=== PATIENT | male | born 2000 | race Caucasian/White ===

== ENCOUNTER 2019-04-21 17:15 | Emergency (ER) | payer OTHER ==
[2019-04-21 17:39] LABS: ABS Lymphocytes 2.1 10^3/ul (1.0-4.8); ABS Monocytes 0.4 10^3/ul (0-0.8); ABS Neutrophils 2.4 10^3/ul (1.5-7.7); Eosinophil % 0.7 %; Hematocrit 43 % (42-52); Lymphocyte % 42.3 %; Mean Corpuscular HGB Conc 35 g/dL (31-36); Mean Corpuscular Hemoglobin 32 pg (27-31); Mean Corpuscular Volume 91 fL (80-94); Mean Platelet Volume 7.5 fL (7.4-10.4); Nucleated Red Blood Cells % 0.1; Platelet Count 247 10^3/uL (150-450); Red Blood Count 4.74 10^6 /uL (4.18-5.48); Red Cell Distribution Width 13 % (10-15)
[2019-04-21 17:57] LABS: Albumin 4.8 g/dL (3.2-5.2); Albumin/Globulin Ratio 1.8 (1-3); Calcium 9.7 mg/dL (8.6-10.3); EGFR African American 122.6 (>60); EGFR Non-African American 101.3 (>60); Globulin 2.7 g/dL (2-4); INR 1.1 (0.82-1.09); Potassium 3.3 mmol/L (3.5-5.0); Total Bilirubin 0.7 mg/dL (0.2-1.0); Total Protein 7.5 g/dL (6.4-8.9)
[2019-04-21] MEDS ORDERED: Potassium Chlor TAB* 20 MEQ TAB.ER PO ONE (18:06)
--- NOTE | 2019-04-21 18:06 | ED ---
Influenza-Like Illness - HPI Summary HPI Summary: Patient complains of cough, lightheadedness, fever, chest tightness, SOB with exertion 3 days. Denies any other pain, injury symptoms. Medical history is none. - History of Current Complaint Chief Complaint: EDShortnessOfBreath Time Seen by Provider: 04/21/19 18:03 Hx Obtained From: Patient Onset/Duration: Gradual Onset, Lasting Days Severity: Moderate Associated Signs & Symptoms: Fever, Cough - Allergy/Home Medications Allergies/Adverse Reactions: Allergies Allergy/AdvReac Type Severity Reaction Status Date / Time No Known Allergies Allergy Verified 12/10/16 11:42 PMH/Surg Hx/FS Hx/Imm Hx Endocrine/Hematology History: Denies: Hx Diabetes Cardiovascular History: Denies: Hx Hypertension, Hx Pacemaker/ICD History: Denies: Hx Renal Disease Sensory History: Denies: Hx Hearing Aid Opthamlomology History: Denies: Hx Eye Injury EENT History: Denies: Hx Deafness Neurological History: Denies: Hx Dementia Psychiatric History: Denies: Hx Panic Disorder Infectious Disease History: No Infectious Disease History: Denies: Traveled Outside the [place] in Last 30 Days - Family History Known Family History: Positive: Non-Contributory - Social History Alcohol Use: Occasionally Hx Substance Use: No Hx Tobacco Use: No Review of Systems Positive: Fever Eyes: Negative ENT: Negative Cardiovascular: Negative Positive: Shortness Of Breath, Cough Gastrointestinal: Negative Genitourinary: Negative Musculoskeletal: Negative Skin: Negative Neurological/Mental Status: Negative Psychological: Normal All Other Systems Reviewed And Are Negative: Yes Physical Exam Triage Information Reviewed: Yes Vital Signs On Initial Exam: Initial Vitals Temp Pulse Resp BP Pulse Ox 97.4 F 98 18 127/88 96 04/21/19 17:17 04/21/19 17:17 04/21/19 17:17 04/21/19 17:17 04/21/19 17:17 Vital Signs Reviewed: Yes Appearance: Positive: Well-Appearing Skin: Positive: Warm Head/Face: Positive: Normal Head/Face Inspection Eyes: Positive: Normal ENT: Positive: Pharyngeal erythema, TMs normal. Negative: Tonsillar swelling, Tonsillar exudate, Trismus, Muffled voice, Hoarse voice Neck: Positive: Supple Respiratory/Lung Sounds: Positive: Clear to Auscultation Cardiovascular: Positive: Normal Abdomen Description: Positive: Nontender Musculoskeletal: Positive: Normal Neurological: Positive: Normal Psychiatric: Positive: Normal AVPU Assessment: Alert - [place] Coma Scale Best Eye Response: 4 - Spontaneous Best Motor Response: 6 - Obeys Commands Best Verbal Response: 5 - Oriented Coma Scale Total: 15 Procedures - Sedation Patient Received Moderate/Deep Sedation with Procedure: No Diagnostics - Vital Signs Vital Signs Temp Pulse Resp BP Pulse Ox 04/21/19 17:17 97.4 F 98 18 127/88 96 - Laboratory Lab Results: Lab Results 04/21/19 04/21/19 04/21/19 Range/Units 17:29 17:29 17:29 WBC 5.0 (3.5-10.8) 10^3/uL RBC 4.74 (4.18-5.48) 10^6 /uL Hgb 15.0 (14.0-18.0) g/dL Hct 43 (42-52) % MCV 91 (80-94) fL MCH 32 H (27-31) pg MCHC 35 (31-36) g/dL RDW 13 (10-15) % Plt Count 247 (150-450) 10^3/uL MPV 7.5 (7.4-10.4) fL Neut % (Auto) 47.8 % Lymph % (Auto) 42.3 % [place] % (Auto) 8.4 % Eos % (Auto) 0.7 % Baso % (Auto) 0.8 % Absolute Neuts (auto) 2.4 (1.5-7.7) 10^3/ul Absolute Lymphs (auto) 2.1 (1.0-4.8) 10^3/ul Absolute Monos (auto) 0.4 (0-0.8) 10^3/ul Absolute Eos (auto) 0.0 (0-0.6) 10^3/ul Absolute Basos (auto) 0.0 (0-0.2) 10^3/ul Absolute Nucleated RBC 0.0 10^3/ul Nucleated RBC % 0.1 INR (Anticoag Therapy) 1.10 H (0.82-1.09) Sodium 138 (135-145) mmol/L Potassium 3.3 L (3.5-5.0) mmol/L Chloride 104 (101-111) mmol/L Carbon Dioxide 27 (22-32) mmol/L Anion Gap 7 (2-11) mmol/L BUN 16 (6-24) mg/dL Creatinine 0.94 (0.67-1.17) mg/dL Est GFR ( Amer) 122.6 (>60) Est GFR (Non-Af Amer) 101.3 (>60) BUN/Creatinine Ratio 17.0 (8-20) Glucose 99 (70-100) mg/dL Calcium 9.7 (8.6-10.3) mg/dL Total Bilirubin 0.70 (0.2-1.0) mg/dL AST 21 (13-39) U/L ALT 39 (7-52) U/L Alkaline Phosphatase 77 (34-104) U/L Troponin I 0.00 (<0.03) ng/mL Total Protein 7.5 (6.4-8.9) g/dL Albumin 4.8 (3.2-5.2) g/dL Globulin 2.7 (2-4) g/dL Albumin/Globulin Ratio 1.8 (1-3) Result Diagrams: 04/21/19 17:29 04/21/19 17:29 Lab Statement: Any lab studies that have been ordered have been reviewed, and results considered in the medical decision making process. Flu Symptom Course/Dx - Course Course Of Treatment: Patient complains of cough, lightheadedness, fever, chest tightness, SOB with exertion 3 days. Denies any other pain, injury symptoms. Medical history is none. Vital signs within normal limits. Potassium 3.3. 40 mEq by mouth administered. Labs otherwise unremarkable. EKG sinus rhythm, heart rate of 76, no prior on file. Chest x-ray unremarkable. - Diagnoses Provider Diagnoses: Hypokalemia, Viral syndrome Discharge ED - Sign-Out/Discharge Documenting (check all that apply): Patient Departure - Discharge Plan Condition: Stable Disposition: HOME Prescriptions: Benzonatate CAP* [Tessalon 100 MG CAP*] 200 mg PO TID 6 Days #40 cap Patient Education Materials: Hypokalemia (ED), Viral Syndrome (ED) Referrals: No Primary Care Phys,NOPCP [Primary Care Provider] - Additional Instructions: Drink plenty of fluids to maintain hydration. Rest. Primary care. Return to the ED for any new or worsening symptoms. - Billing Disposition and Condition Condition: STABLE Disposition: Home
[2019-04-21 18:53] LABS: Influenza A Molecular Negative (Negative); Influenza B Molecular Negative (Negative)
[2019-04-21] MEDS ORDERED: Benzonatate CAP* 100 MG PO ONE (19:45)
[2019-04-21 20:10] VITALS: BP 140/82
== END 2019-04-21 20:10 | disposition home or self-care (01) ==
LOC: ED 17:15
DX: B34.9 Viral infection, unspecified (principal); E87.6 Hypokalemia
CPT/HCPCS: 36415; 71046; 80053; 84484; 85025; 85610; 93005; 99283; A9270-GY